=== PATIENT | female | born 1990 | race African-American/Black ===

== ENCOUNTER 2016-07-13 18:44 | Emergency (ER) | payer SELFPAY | END 2016-07-13 22:19 | disposition left against medical advice (07) | LOC: ER 21:58 | DX: S49.80XA Other specified injuries of shoulder and upper arm, unspecified arm, initial encounter (principal); X58.XXXA Exposure to other specified factors, initial encounter; Y93.89 Activity, other specified; Y92.89 Other specified places as the place of occurrence of the external cause; Y99.8 Other external cause status ==

== ENCOUNTER 2016-08-28 05:06 | Emergency (ER) | payer OTHER ==
[~2016-08-28] VITALS: Ht 170.2 cm; Wt 65.0 kg
[2016-08-28 05:08] VITALS: BP 125/71
== END 2016-08-28 06:00 | disposition home or self-care (01) ==
LOC: ER 05:14
DX: F41.9 Anxiety disorder, unspecified (principal); J45.909 Unspecified asthma, uncomplicated
CPT/HCPCS: 81025; 99283